=== PATIENT | male | born 1980 | race African-American/Black ===

== ENCOUNTER 2017-06-27 19:25 | Emergency (ER) | payer OTHER ==
[~2017-06-27] VITALS: Ht 190.5 cm; Wt 105.9 kg
[2017-06-27 19:35] VITALS: BP 148/89
== END 2017-06-27 20:05 | disposition home or self-care (01) ==
LOC: EMS 19:26
DX: H92.01 Otalgia, right ear (principal); F17.210 Nicotine dependence, cigarettes, uncomplicated; Z88.2 Allergy status to sulfonamides
CPT/HCPCS: 99281; 99406

== ENCOUNTER 2017-08-18 22:01 | Emergency (ER) | payer OTHER ==
[~2017-08-18] VITALS: Ht 182.9 cm; Wt 100.0 kg
[2017-08-18] MEDS ORDERED: PROPARACAINE HCL 0.5% 15 ML OPHTHALMIC SOLUTION OD ONE (23:45)
[2017-08-19] MEDS ORDERED: PROPARACAINE/FLUORESCEIN SOD 0.5-0.25% 0.5 ML OPHTHALMIC SOLUTION OS ONE (00:15)
[2017-08-19 00:40] VITALS: BP 142/88
[2017-08-19] MEDS ORDERED: NEOMYCIN/BACITRACIN/POLYMYXIN B 3.5 GM OPHTHALMIC OINTMENT OS ONE (01:15)
== END 2017-08-19 01:21 | disposition home or self-care (01) ==
LOC: EMS 22:02
DX: S05.02XA Injury of conjunctiva and corneal abrasion without foreign body, left eye, initial encounter (principal); F17.210 Nicotine dependence, cigarettes, uncomplicated; Z88.2 Allergy status to sulfonamides; X08.8XXA Exposure to other specified smoke, fire and flames, initial encounter; Y93.89 Activity, other specified; Y92.69 Other specified industrial and construction area as the place of occurrence of the external cause; Y99.0 Civilian activity done for income or pay
CPT/HCPCS: 99284

== ENCOUNTER 2017-09-06 08:58 | Emergency (ER) | payer OTHER ==
[~2017-09-06] VITALS: Ht 190.5 cm; Wt 109.1 kg
[2017-09-06 10:30] VITALS: BP 136/71
[2017-09-06] MEDS ORDERED: IBUPROFEN 800 MG TABLET PO ONE (10:30)
[2017-09-06] MEDS ORDERED: BACITRACIN 0.9 GM PACKET OINTMENT TP ONE (10:30)
== END 2017-09-06 10:33 | disposition home or self-care (01) ==
LOC: EMS 08:59
DX: T23.201A Burn of second degree of right hand, unspecified site, initial encounter (principal); F17.210 Nicotine dependence, cigarettes, uncomplicated; Z88.2 Allergy status to sulfonamides; X14.1XXA Other contact with hot air and other hot gases, initial encounter; Y93.89 Activity, other specified; Y92.89 Other specified places as the place of occurrence of the external cause; Y99.8 Other external cause status
CPT/HCPCS: 16000; 99284

== ENCOUNTER 2017-10-13 14:34 | Emergency (ER) | payer SELFPAY ==
[~2017-10-13] VITALS: Ht 190.5 cm; Wt 127.3 kg
[2017-10-13] MEDS ORDERED: METHOCARBAMOL 500 MG TABLET PO ONE (15:30)
[2017-10-13] MEDS ORDERED: KETOROLAC TROMETHAMINE 60 MG/2 ML VIAL IM ONE (15:30)
[2017-10-13 16:05] VITALS: BP 135/72
== END 2017-10-13 16:13 | disposition home or self-care (01) ==
LOC: EMS 14:35
DX: S39.012A Strain of muscle, fascia and tendon of lower back, initial encounter (principal); Z88.2 Allergy status to sulfonamides; F17.210 Nicotine dependence, cigarettes, uncomplicated; X50.9XXA Other and unspecified overexertion or strenuous movements or postures, initial encounter; Y93.E2 Activity, laundry; Y92.89 Other specified places as the place of occurrence of the external cause; Y99.8 Other external cause status
CPT/HCPCS: 96372; 99283; J1885

== ENCOUNTER 2017-10-26 21:46 | Emergency (ER) | payer SELFPAY ==
[~2017-10-26] VITALS: Ht 190.5 cm; Wt 106.8 kg
[2017-10-26 22:20] LABS: BASOPHILS % (AUTO) 0.5 % (0.0-2.0); EOSINOPHILS % (AUTO) 3.6 % (1.0-6.0); HEMATOCRIT 41.6 % (41-53); HEMOGLOBIN 14.7 g/dL (13.5-17.5); LYMPHOCYTES # (AUTO) 1.8 K/uL (1.0-4.8); LYMPHOCYTES % (AUTO) 18.8 % (22.0-44.0); MEAN CORPUSCULAR HEMOGLOBIN 32.6 pg (26.0-34.0); MEAN CORPUSCULAR HGB CONC 35.4 G/dL (31.0-37.0); MEAN CORPUSCULAR VOLUME 92 fL (80-100); MONOCYTES # (AUTO) 0.9 K/uL (0.1-1.0); MONOCYTES % (AUTO) 9.7 % (2.0-9.0); NEUTROPHILS # (AUTO) 6.4 K/uL (1.8-7.7); NEUTROPHILS % (AUTO) 67.4 % (40.0-70.0); PLATELET COUNT (AUTO) 160 K/uL (150-450); RED BLOOD CELL COUNT(AUTO) 4.52 MIL/uL (4.50-5.90); RED CELL DISTRIBUTION WIDTH 14.1 % (11.5-14.5)
[2017-10-26 22:27] LABS: ANION GAP 8 mmol/L (8-16); CALCIUM, TOTAL 8.6 mg/dL (8.8-10.5); CARBON DIOXIDE 28 mmol/L (22-29); CHLORIDE 103 mmol/L (98-107); CREATININE 0.96 mg/dL (0.60-1.30); GLOMERULAR FILTR. RATE CALC > 60 mL/min (>60); GLUCOSE,RANDOM 98 mg/dL (70-110); POTASSIUM 4.2 mmol/L (3.5-5.1); SODIUM SERUM 139 mmol/L (136-145); UREA NITROGEN, BLOOD 12 mg/dL (7-18)
[2017-10-26 22:33] LABS: ALANINE AMINOTRANSFERASE 32 U/L (12-78); ALBUMIN 3.8 g/dL (3.4-5.0); ALKALINE PHOSPHATASE 73 U/L (46-116); ASPARTATE AMINOTRANSFERASE 18 U/L (15-37); BILIRUBIN,TOTAL 0.6 mg/dL (0.1-1.0); TOTAL PROTEIN, SERUM 7.5 g/dL (6.4-8.2)
[2017-10-27] MEDS ORDERED: MAGNESIUM CITRATE 300 ML ORAL SOLUTION PO ONE (00:30)
[2017-10-27 00:49] VITALS: BP 149/80
== END 2017-10-27 00:47 | disposition home or self-care (01) ==
LOC: EMS 21:47
DX: K59.00 Constipation, unspecified (principal); F17.210 Nicotine dependence, cigarettes, uncomplicated; Z88.2 Allergy status to sulfonamides
CPT/HCPCS: 74018; 99285

== ENCOUNTER 2017-11-26 13:22 | Emergency (ER) | payer SELFPAY ==
[~2017-11-26] VITALS: Ht 190.5 cm; Wt 106.8 kg
[2017-11-26 13:54] LABS: ANION GAP 11 mmol/L (8-16); CALCIUM, TOTAL 8.6 mg/dL (8.8-10.5); CARBON DIOXIDE 24 mmol/L (22-29); CHLORIDE 100 mmol/L (98-107); CREATININE 0.93 mg/dL (0.60-1.30); GLOMERULAR FILTR. RATE CALC > 60 mL/min (>60); GLUCOSE,RANDOM 122 mg/dL (70-110); POTASSIUM 3.5 mmol/L (3.5-5.1); SODIUM SERUM 135 mmol/L (136-145); UREA NITROGEN, BLOOD 12 mg/dL (7-18)
[2017-11-26 13:56] LABS: BASOPHILS % (AUTO) 0.4 % (0.0-2.0); EOSINOPHILS % (AUTO) 2.5 % (1.0-6.0); HEMATOCRIT 42.2 % (41-53); HEMOGLOBIN 14.9 g/dL (13.5-17.5); LYMPHOCYTES % (AUTO) 14.1 % (22.0-44.0); MEAN CORPUSCULAR HEMOGLOBIN 32.7 pg (26.0-34.0); MEAN CORPUSCULAR HGB CONC 35.3 G/dL (31.0-37.0); MEAN CORPUSCULAR VOLUME 93 fL (80-100); MONOCYTES # (AUTO) 0.8 K/uL (0.1-1.0); MONOCYTES % (AUTO) 11.7 % (2.0-9.0); NEUTROPHILS # (AUTO) 4.9 K/uL (1.8-7.7); NEUTROPHILS % (AUTO) 71.3 % (40.0-70.0); PLATELET COUNT (AUTO) 168 K/uL (150-450); RED BLOOD CELL COUNT(AUTO) 4.55 MIL/uL (4.50-5.90); RED CELL DISTRIBUTION WIDTH 14.3 % (11.5-14.5)
[2017-11-26 14:02] LABS: APPEARANCE,URINE CLEAR (CLEAR); BILIRUBIN,URINE NEGATIVE (NEGATIVE); GLUCOSE, URINE (UA) NEGATIVE (NEGATIVE); KETONES,URINE TRACE mg/dL (NEGATIVE); LEUKOCYTE ESTERASE ,URINE NEGATIVE (NEGATIVE); NITRATE,URINE NEGATIVE (NEGATIVE); OCCULT BLOOD,URINE NEGATIVE (NEGATIVE); PH,URINE 5.5 (5.0-8.0); PROTEIN,URINE NEGATIVE (NEGATIVE); UROBILINOGEN,URINE 0.2 mg/dL (<=1.0)
[2017-11-26 14:02] LABS: ALANINE AMINOTRANSFERASE 32 U/L (12-78); ALBUMIN 3.8 g/dL (3.4-5.0); ALKALINE PHOSPHATASE 84 U/L (46-116); ASPARTATE AMINOTRANSFERASE 19 U/L (15-37); BILIRUBIN,TOTAL 0.6 mg/dL (0.1-1.0); LIPASE 101 U/L (73-393); TOTAL PROTEIN, SERUM 7.9 g/dL (6.4-8.2)
[2017-11-26] MEDS ORDERED: SODIUM CHLORIDE 0.9% 1,000 ML IV ONE ×2 (15:15)
[2017-11-26] MEDS ORDERED: ONDANSETRON HCL 4 MG/2 ML VIAL IVP ONE (15:15)
[2017-11-26 16:22] VITALS: BP 144/87
== END 2017-11-26 16:23 | disposition home or self-care (01) ==
LOC: EMS 13:23
DX: A08.4 Viral intestinal infection, unspecified (principal); F17.210 Nicotine dependence, cigarettes, uncomplicated; Z88.2 Allergy status to sulfonamides
CPT/HCPCS: 36415; 80053; 81003; 83690; 85025; 93005; 96361; 96374; 99285; J2405; J7030

== ENCOUNTER 2018-02-26 19:03 | Emergency (ER) | payer SELFPAY ==
[~2018-02-26] VITALS: Ht 188 cm; Wt 109.0 kg
[2018-02-26 19:07] VITALS: BP 147/93
== END 2018-02-26 19:48 | disposition left against medical advice (07) ==
LOC: EMS 19:04
DX: M79.602 Pain in left arm (principal); R20.0 Anesthesia of skin; Z53.21 Procedure and treatment not carried out due to patient leaving prior to being seen by health care provider
CPT/HCPCS: 93005

== ENCOUNTER 2018-04-11 17:37 | Emergency (ER) | payer SELFPAY ==
[~2018-04-11] VITALS: Ht 190.5 cm; Wt 109.1 kg
[2018-04-11] MEDS ORDERED: KETOROLAC TROMETHAMINE 60 MG/2 ML VIAL IM ONE (19:45)
[2018-04-11] MEDS ORDERED: DIAZEPAM 5 MG TABLET PO ONE (19:45)
[2018-04-11 20:55] VITALS: BP 131/89
== END 2018-04-11 20:56 | disposition home or self-care (01) ==
LOC: EMS 17:37
DX: S13.4XXA Sprain of ligaments of cervical spine, initial encounter (principal); S29.012A Strain of muscle and tendon of back wall of thorax, initial encounter; S06.0X0A Concussion without loss of consciousness, initial encounter; F12.90 Cannabis use, unspecified, uncomplicated; F17.210 Nicotine dependence, cigarettes, uncomplicated; Z88.2 Allergy status to sulfonamides; V43.52XA Car driver injured in collision with other type car in traffic accident, initial encounter; Y93.89 Activity, other specified; Y92.89 Other specified places as the place of occurrence of the external cause; Y99.8 Other external cause status
CPT/HCPCS: 72040; 72070; 96372; 99284; J1885

== ENCOUNTER 2018-09-09 10:13 | Emergency (ER) | payer OTHER ==
[~2018-09-09] VITALS: Ht 190.5 cm; Wt 127.3 kg
[2018-09-09] MEDS ORDERED: TRAM50TA4 PO (10:27)
[2018-09-09] MEDS ORDERED: BACL10TA PO (10:27)
[2018-09-09] MEDS ORDERED: IBUP-2071 PO (10:27)
[2018-09-09] MEDS ORDERED: MELO-107 PO (10:27)
[2018-09-09 10:57] VITALS: BP 132/76
== END 2018-09-09 12:01 | disposition home or self-care (01) ==
LOC: EMS 10:13
DX: S23.29XA Dislocation of other parts of thorax, initial encounter (principal); M94.0 Chondrocostal junction syndrome [Tietze]; F12.90 Cannabis use, unspecified, uncomplicated; F17.210 Nicotine dependence, cigarettes, uncomplicated; Z88.2 Allergy status to sulfonamides; X50.0XXA Overexertion from strenuous movement or load, initial encounter; Y93.89 Activity, other specified; Y92.89 Other specified places as the place of occurrence of the external cause; Y99.8 Other external cause status
CPT/HCPCS: 99406

== ENCOUNTER 2020-08-24 08:14 | Emergency (ER) | payer OTHER ==
[~2020-08-24] VITALS: Ht 190.5 cm; Wt 112.3 kg
[~2020-08-24 08:14] MED LIST: BACL10TA PO; IBUP-2071 PO; MELO-107 PO; TRAM50TA4 PO
[2020-08-24 08:19] VITALS: BP 133/76
[2020-08-24] MEDS ORDERED: LIDOCAINE 1% 10 ML VIAL PERC ONE (08:45)
[2020-08-24] MEDS ORDERED: POVIDONE-IODINE 10% 15 ML SOLUTION UD TP ONE (08:45)
== END 2020-08-24 09:34 | disposition home or self-care (01) ==
LOC: EMS 08:14
DX: L02.811 Cutaneous abscess of head [any part, except face] (principal); L72.3 Sebaceous cyst; F17.210 Nicotine dependence, cigarettes, uncomplicated; F12.90 Cannabis use, unspecified, uncomplicated
CPT/HCPCS: 10061; 99284; J3490

== ENCOUNTER 2020-08-26 08:53 | Emergency (ER) | payer OTHER ==
[~2020-08-26] VITALS: Ht 190.5 cm; Wt 109.1 kg
[2020-08-26 08:57] VITALS: BP 140/79
[2020-08-26] MEDS ORDERED: CEPH500C3 PO (09:01)
== END 2020-08-26 10:30 | disposition home or self-care (01) ==
LOC: EMS 09:11
DX: L02.811 Cutaneous abscess of head [any part, except face] (principal)
CPT/HCPCS: 99284; Z7502

== ENCOUNTER 2021-04-11 06:30 | Emergency (ER) | payer OTHER ==
[~2021-04-11] VITALS: Ht 190.5 cm; Wt 111.4 kg
[~2021-04-11 06:30] MED LIST changes: -BACL10TA PO; +CEPH500C3 PO; -IBUP-2071 PO; -MELO-107 PO; -TRAM50TA4 PO
[2021-04-11 06:37] VITALS: BP 143/82
== END 2021-04-11 07:32 | disposition home or self-care (01) ==
LOC: EMS 06:34
DX: K02.9 Dental caries, unspecified (principal); F17.210 Nicotine dependence, cigarettes, uncomplicated; F12.90 Cannabis use, unspecified, uncomplicated; Z88.1 Allergy status to other antibiotic agents
CPT/HCPCS: 99283; Z7502

== ENCOUNTER 2021-05-11 15:04 | Emergency (ER) | payer OTHER ==
[~2021-05-11] VITALS: Ht 190.5 cm; Wt 111.4 kg
[2021-05-11 15:47] VITALS: BP 159/79
== END 2021-05-11 16:20 | disposition home or self-care (01) ==
LOC: EMS 15:13
DX: K08.89 Other specified disorders of teeth and supporting structures (principal); F17.210 Nicotine dependence, cigarettes, uncomplicated; F12.90 Cannabis use, unspecified, uncomplicated
CPT/HCPCS: 99283

== ENCOUNTER 2021-05-22 07:08 | Emergency (ER) | payer OTHER ==
[~2021-05-22] VITALS: Ht 190.5 cm; Wt 111.4 kg
[2021-05-22 07:24] VITALS: BP 144/83
[2021-05-22] MEDS ORDERED: BACITRACIN 0.9 GM PACKET OINTMENT TP ONE (07:45)
== END 2021-05-22 08:53 | disposition left against medical advice (07) ==
LOC: EMS 07:08
DX: L02.414 Cutaneous abscess of left upper limb (principal); Z53.21 Procedure and treatment not carried out due to patient leaving prior to being seen by health care provider
CPT/HCPCS: Z7610

== ENCOUNTER 2021-07-07 05:56 | Emergency (ER) | payer OTHER ==
[~2021-07-07] VITALS: Ht 190.5 cm; Wt 100.0 kg
[2021-07-07 05:59] VITALS: BP 156/74
[2021-07-07] MEDS ORDERED: IBUP-2070 PO (06:13)
[2021-07-07] MEDS ORDERED: IBUPROFEN 600 MG TABLET PO ONE (06:15)
== END 2021-07-07 06:31 | disposition home or self-care (01) ==
LOC: EMS 05:57
DX: K02.9 Dental caries, unspecified (principal); K13.79 Other lesions of oral mucosa; F12.90 Cannabis use, unspecified, uncomplicated; F17.210 Nicotine dependence, cigarettes, uncomplicated; Z88.2 Allergy status to sulfonamides
CPT/HCPCS: 99282; Z7502; Z7610

== ENCOUNTER 2022-02-25 10:36 | Emergency (ER) | payer OTHER ==
[~2022-02-25] VITALS: Ht 190.5 cm; Wt 114.5 kg
[~2022-02-25 10:36] MED LIST changes: -CEPH500C3 PO; +IBUP-2070 PO
[2022-02-25 10:46] VITALS: BP 144/89
[2022-02-25] MEDS ORDERED: FLUORESCEIN SODIUM 1 MG STRIP ONE (11:13)
== END 2022-02-25 12:51 | disposition left against medical advice (07) ==
LOC: EMS 10:38
DX: Z53.21 Procedure and treatment not carried out due to patient leaving prior to being seen by health care provider (principal)
CPT/HCPCS: Z7610

== ENCOUNTER 2022-10-18 07:31 | Emergency (ER) | payer OTHER ==
[~2022-10-18] VITALS: Ht 188 cm; Wt 109.1 kg
[~2022-10-18 07:31] MED LIST changes: +IBUP-1492 PO; -IBUP-2070 PO
[2022-10-18 07:34] VITALS: BP 133/68
[2022-10-18 07:49] LABS: COVID AG,FIA SOURCE NASAL SWAB
[2022-10-18 08:17] LABS: INFLUENZA TYPE A NEGATIVE FOR TYPE A (NEGATIVE); INFLUENZA TYPE B NEGATIVE FOR TYPE B (NEGATIVE)
== END 2022-10-18 11:13 | disposition left against medical advice (07) ==
LOC: EMS 07:37
DX: Z53.21 Procedure and treatment not carried out due to patient leaving prior to being seen by health care provider (principal); Z20.822 Contact with and (suspected) exposure to COVID-19
CPT/HCPCS: 87804; 99281; Z7502

== ENCOUNTER 2024-12-12 06:06 | Emergency (ER) | payer OTHER ==
[~2024-12-12] VITALS: Ht 188 cm; Wt 112.7 kg
[2024-12-12 06:19] VITALS: BP 144/80; PULSE 91; RESP 18; TEMP 98.2; O2SAT 99
[2024-12-12] MEDS ORDERED: AMOX-457 PO (06:55)
[2024-12-12] MEDS ORDERED: IBUP-1492 PO (06:55)
[2024-12-12] MEDS: AMOX TR/POT CLAV 875 MG/125 MG TABLET PO ONE (06:57)
[2024-12-12] MEDS: KETOROLAC TROMETHAMINE 30 MG/ML VIAL IM ONE (06:57)
== END 2024-12-12 07:04 | disposition home or self-care (01) ==
LOC: EMS 06:07
DX: K02.9 Dental caries, unspecified (principal); F12.90 Cannabis use, unspecified, uncomplicated; F17.210 Nicotine dependence, cigarettes, uncomplicated; Z98.890 Other specified postprocedural states; Z88.2 Allergy status to sulfonamides; Z79.899 Other long term (current) drug therapy
CPT/HCPCS: 99283; 96372; J1885